=== PATIENT | female | born 1975 | race Caucasian/White ===

== ENCOUNTER → 2022-06-10 14:22 | Outpatient (CLI) | payer MEDICAID, SELFPAY ==
[2022-06-10 14:17] LABS: Alanine Aminotransferase 12 U/L (12-78); Albumin Level 3.7 g/dl (3.5-5.0); Albumin/Globulin Ratio 1.5 (1.1-1.8); Alkaline Phosphatase 43 U/L (38-126); Aspartate Amino Transferase 27 U/L (14-36); Basophils % 0.7 % (0.1-2.0); Blood Urea Nitrogen 10 mg/dl (7-17); Calcium 8.7 mg/dl (8.4-10.2); Carbon Dioxide 27 mmol/L (22.0-30.0); Chloride 104 mmol/L (98-107); Cholesterol 146 mg/dl (140-200); Eosinophils # 0.2 K/mm3 (0.0-0.4); Eosinophils % 3.9 % (0.1-12.0); Estimated Glomerular Filt Rate 108 ml/min (>60); GFR (African American) 131 ML/MIN (>60); Globulin 2.5 g/dL (1.3-3.2); Glucose 114 mg/dl (74-100); HDL Cholesterol 49 mg/dl (40-60); Hematocrit 31.4 % (37.0-47.0); Hemoglobin 10.1 g/dL (12.2-16.2); Lymphocytes # 2.1 K/mm3 (0.7-4.5); Lymphocytes % 41.8 % (10-50); Mean Corpuscular HGB Conc 32.3 g/dL (31.8-35.4); Mean Corpuscular Hemoglobin 28.3 pg (27.0-31.2); Mean Corpuscular Volume 87.6 fl (81-99); Mean Platelet Volume 9.6 fl (7.4-10.4); Monocytes # 0.3 K/mm3 (0.1-1.0); Monocytes % 6.5 % (1.7-9.3); Neutrophils # 2.4 K/mm3 (1.8-7.8); Neutrophils % 47.1 % (37.0-80.0); Platelet Count 296 K/mm3 (142-424); Red Blood Count 3.58 M/mm3 (4.20-5.40); Sodium 138 mmol/L (136-145); Total Protein,Serum 6.2 g/dl (6.3-8.2); Triglycerides 69 mg/dl (30-150); VLDL Cholesterol 14 mg/dL (0-40); White Blood Count 5.1 K/mm3 (4.8-10.8)
[2022-06-10 14:20] LABS: Bilirubin,Total < 0.1 mg/dl (0.2-1.3)
[2022-06-10 14:33] LABS: 25-OH Vitamin D, Total 53.8 ng/mL (30-100)
[2022-06-10 14:34] LABS: Free T4 (Free Thyroxine) 0.83 ng/dl (0.78-2.19)
[2022-06-10 14:48] LABS: Thyroid Stimulating Hormone 3.12 uIU/mL (0.465-4.68)
[2022-06-11 08:40] LABS: Prolactin 20.8 ng/mL (4.8-23.3)
== END ==
PROVIDERS: PCP Emergency Medicine; Visit Provider Emergency Medicine
DX: R53.83 Other fatigue (principal); E55.9 Vitamin D deficiency, unspecified; Z79.899 Other long term (current) drug therapy
CPT/HCPCS: 80053; 80061; 82306; 84146; 84439; 84443; 85025

== ENCOUNTER → 2022-06-23 08:35 | Outpatient (CLI) | payer MEDICAID, SELFPAY ==
--- NOTE | 2022-06-23 08:35 | MR_ITS ---
FINAL REPORT CLINICAL HISTORY: pituitary gland mass. LACTATING IN RIGHT BREAST. MIGRAINE HEADACHE. PAIN BEHIND RIGHT EYE WITH TWITCHING. SYMPTOMS X1YEAR. FINDINGS: Multiplanar MR imaging of the brain was performed without contrast. There is no evidence of intracranial hemorrhage or mass. The ventricular size is normal. There is no evidence of shift of the midline structures. No abnormal extra-axial fluid collection is identified. The posterior fossa and brainstem have an unremarkable appearance. The pituitary gland is somewhat enlarged measuring 9 mm in height. This has a convex superior border. There is no well-defined mass or nodule. No area of abnormal restricted diffusion is identified. Normal major vessel vascular flow voids are seen. IMPRESSION: Somewhat enlarged pituitary gland without focal mass or nodule. Recommend follow-up pituitary protocol a MRI without and with contrast. Reviewed, Interpreted and Dictated by Khurram Isaacs III, MD Transcribed by Waldemar Damico Authenticated and [facility]
== END ==
PROVIDERS: PCP Emergency Medicine; Visit Provider Emergency Medicine
DX: E23.7 Disorder of pituitary gland, unspecified (principal)
CPT/HCPCS: 70551

== ENCOUNTER → 2022-06-24 06:37 | Outpatient (CLI) | payer MEDICAID, SELFPAY ==
--- NOTE | 2022-06-24 | CA_ITS ---
APPROVED REPORT Exam: Exercise Treadmill Technologist: HARLAN FERNANDEZ, Ht: 5 ft 3 in Wt: 128 lbs BSA: 1.60 m2 HR: 87 bpm BP: 143/77 mmHg Indications: CP; MURMUR Medical History Medications: BuPRen-NALOXONE,,,,, NaloXone,,,,, Allergies: No known drug allergies Cardiac Risk Factors: FHX of CAD Stress Test Details Test: Trevor HR Resting HR: 86 bpm Max Heart Rate (APMHR): 175.042691 bpm Max HR Achieved: 150 bpm Target HR (85% APMHR): 148.514790 bpm % of APMHR: 85.71 Recovery HR: 95 bpm BP Resting BP: 141/82 mmHg Max BP: 164/93 mmHg Recovery BP: 145.0/84.0 mmHg ECG Clinical Exercise duration: 08:47 min Highest Stage Achieved: Exercise capacity: 10.1 METs Stress ECG Conclusion PT HAD SOA. NO CP. OCCASIONAL PAC/PVC <1.[address] CHANGES Test Summary RECOVERY 03:35 0.0 0.0 96 . 145/ 84 . . REST . . . . . . . Standing REST 15:46 0.0 0.0 86 . 141/ 82 . . Stage 1 01:00 10.0 1.7 105 . . . . Stage 1 02:00 10.0 1.7 112 . . . . Stage 1 03:00 10.0 1.7 108 . 124/ 78 . . Stage 2 01:00 12.0 2.5 117 . . . . Stage 2 02:00 12.0 2.5 123 . . . . Stage 2 03:00 12.0 2.5 128 . 132/ 72 . . Stage 3 01:00 14.0 3.4 139 . . . . Stage 3 02:00 14.0 3.4 144 . . . . Stage 3 02:47 14.0 3.4 149 . 140/ 80 . Stop exercise at 08:47 RECOVERY 01:00 0.0 0.0 115 . . . . RECOVERY 02:00 0.0 0.0 95 . . . . RECOVERY 03:00 0.0 0.0 90 . 164/ 93 . . RECOVERY 03:35 0.0 0.0 96 . 145/ 84 . . Electronically signed by : Tommy Alvarez MD 06/24/2022 13:08:33
--- NOTE | 2022-06-24 06:37 | NM_ITS ---
APPROVED REPORT Exam: Nuclear Stress Test Indication: FM HX., C.P., SOB, PALPITATIONS, FATIGUE, MURMUR Patient Location: Outpatient Stress Tech: Kasey Cole [place] Tech:Jacquie Abel, ARRNadine RT (R)(N)(M) Ht: 5 ft 3 in Wt: 130 lbs Bra Size: 34C HR: 87 bpm BP: 143/77 mmHg BSA: 1.61 m2 TID: 1.22 BMI: 23.0 History: FM HX., C.P., SOB, PALPITATIONS, FATIGUE, MURMUR Procedure: Patient exercised on Trevor protocol 7:46 minutes and sec, resting heart rate 87 bpm, resting blood pressure 143/77 mmHg, with exercise maximum heart rate achived was 146 bpm which is 86 % of the maximum predicted heart rate and blood pressure was 164/80 mmHg. Test was stopped due to SOA. Patient has Good exercise capacity, achieved 10.1 METs of workload on treadmill, the blood pressure response to exercise was Adequate. Electrocardiogram Resting electrocardiogram showed sinus rhythm, with exercise there is less than 1.[address] segment depression noted from the baseline EKG. The EKG portion of the exercise Myoview is negative for ischemia. Cardiac Stress and Resting SPECT Images: Cardiac Stress and Resting SPECT images were obtained using technetium 99m Myoview 30.9 mCi stress and 10.22 mCi at rest. Gated SPECT for analysis of segmental wall motion and calculation of the ejection fraction also done. Cardiac stress and rest SPECT images show uniform myocardial activity without segmental perfusion abnormality, computer derived ejection fraction is 52% with no regional wall motion abnormality, right ventricle is normal size and contractility. Conclusion: 1. The EKG portion of the exercise Myoview is negative for ischemia, patient has good exercise capacity achieved 10.1 METs of workload on treadmill, the blood pressure response to exercise was adequate, there was no exercise-induced chest discomfort. 2. No scintigraphic evidence of reversible ischemia seen, computer derived ejection fraction is 52% with no regional wall motion abnormality, right ventricle is normal size and contractility. 3. Normal exercise Myoview study. Electronically signed by : Tommy Alvarez MD 06/24/2022 13:24:59
== END ==
PROVIDERS: PCP Emergency Medicine; Visit Provider Emergency Medicine
DX: R07.9 Chest pain, unspecified (principal)
CPT/HCPCS: 78452; 93017; A9502

== ENCOUNTER → 2022-06-29 10:32 | Outpatient (CLI) | payer MEDICAID, SELFPAY ==
[2022-06-29 20:47] LABS: Erythrocyte Sedimentation Rate 113 mm/hr (0-20)
[2022-06-29 21:13] LABS: Uric Acid 3.2 mg/dl (2.5-6.2)
[2022-07-01 07:14] LABS: RA Latex Turbid. 15.4 IU/mL (<14.0)
[2022-07-05 08:53] LABS: Antinuclear Antibodies, IFA Negative (.)
== END ==
PROVIDERS: PCP Emergency Medicine; Visit Provider Emergency Medicine
DX: G25.81 Restless legs syndrome (principal)
CPT/HCPCS: 84550; 85651; 86038; 86431

== ENCOUNTER → 2022-07-11 10:42 | Outpatient (CLI) | payer MEDICAID, SELFPAY ==
--- NOTE | 2022-07-11 10:42 | MR_ITS ---
FINAL REPORT CLINICAL HISTORY: pitutary protocal. ABNORMAL MRI 06/23. HEADACHE. TWITCHING AND PAIN BEHIND RIGHT EYE. LACTATING IN RIGHT BREAST. 10ML PROHANCE GIVEN. COMPARISON: 06/23/2022 FINDINGS: Multiplanar MR imaging of the brain was performed without and with contrast with attention to the pituitary. There is no evidence of intracranial hemorrhage or mass. No abnormal extra-axial fluid collection is seen. The ventricular size is within normal limits. There is no evidence of shift of the midline structures. The posterior fossa and brainstem have an unremarkable appearance. No area of abnormal restricted diffusion is identified. No abnormal contrast enhancement is seen. Normal major vessel vascular flow voids are noted. The pituitary gland is mildly enlarged measuring 8 mm in height with a convex upper border. There is no pituitary mass or abnormal contrast enhancement. The pituitary stalk is midline. There is no suprasellar mass. The optic chiasm is normal. IMPRESSION: No acute intracranial abnormality identified. Mildly enlarged pituitary gland of uncertain significance. Reviewed, Interpreted and Dictated by Khurram Isaacs III, MD Transcribed by Xiao Dan Authenticated and [facility]
== END ==
PROVIDERS: PCP Emergency Medicine; Visit Provider Emergency Medicine
DX: E23.7 Disorder of pituitary gland, unspecified (principal)
CPT/HCPCS: 70553; A9576

== ENCOUNTER → 2022-10-25 23:00 | Outpatient (CLI) | payer MEDICAID, SELFPAY ==
[2022-10-26 17:06] LABS: Amphetamine/Metha Screen,Urine Negative ng/ml (<1000); Barbiturates Screen,Urine Negative ng/ml (<200); Benzodiazepines Screen,Urine Negative ng/ml (<200); Cannabinoid Screen,Urine Negative ng/ml (<50); Cocaine Screen,Urine Positive ng/ml (<300); Methadone Screen,Urine Negative ng/ml (<300); Opiate Screen,Urine Negative ng/ml (<300); Phencyclidine Screen,Urine Negative ng/ml (<25)
== END ==
PROVIDERS: PCP Emergency Medicine; Visit Provider Emergency Medicine
DX: Z79.899 Other long term (current) drug therapy (principal)
CPT/HCPCS: 80305

== ENCOUNTER → 2022-11-11 15:30 | Outpatient (CLI) | payer MEDICAID, SELFPAY ==
[2022-11-11 17:51] LABS: Amphetamine/Metha Screen,Urine Positive ng/ml (<1000)
[2022-11-11 17:52] LABS: Barbiturates Screen,Urine Negative ng/ml (<200); Benzodiazepines Screen,Urine Negative ng/ml (<200)
[2022-11-11 17:53] LABS: Cannabinoid Screen,Urine Negative ng/ml (<50)
[2022-11-11 17:54] LABS: Cocaine Screen,Urine Negative ng/ml (<300); Methadone Screen,Urine Negative ng/ml (<300)
[2022-11-11 17:55] LABS: Opiate Screen,Urine Negative ng/ml (<300)
[2022-11-11 17:56] LABS: Phencyclidine Screen,Urine Negative ng/ml (<25)
== END ==
PROVIDERS: PCP Emergency Medicine; Visit Provider Emergency Medicine
DX: Z79.899 Other long term (current) drug therapy (principal)
CPT/HCPCS: 80305

== ENCOUNTER → 2023-02-08 14:29 | Outpatient (CLI) | payer MEDICAID, SELFPAY ==
--- NOTE | 2023-02-08 14:32 | MM_ITS ---
PROCEDURE INFORMATION: Exam: US Right Breast, Complete US Left Breast, Complete MG Bilateral Diagnostic Breast Tomosynthesis Exam date and time: 02/08/2023 3:27 PM Age: 47 years old Clinical indication: Bilateral breast palpable lumps; Bilateral breast discharge; Breast pain and bloody nipple discharge TECHNIQUE: Imaging protocol: Complete ultrasound of all four quadrants of the right breast and the retroareolar regions, including ultrasound of the axilla when performed. Complete ultrasound of all four quadrants of the left breast and the retroareolar regions, including ultrasound of the axilla when performed. Bilateral Diagnostic tomosynthesis and 2D mammography including computer-aided detection (CAD) when performed. Unilateral or bilateral exam. COMPARISON: MG MM DIG MAMM BI DX W/CAD 02/08/2023 2:26 PM FINDINGS: MAMMOGRAPHY: The breast tissue is extremely dense, which lowers the sensitivity of mammography. There is no stellate mass, architectural distortion or suspicious microcalcifications in either breast to suggest malignancy. No skin thickening or axillary adenopathy. Skin markers were placed over bilateral upper outer quadrant as well as the anterior right upper inner quadrant for bilateral palpable abnormalities. Dense coarse nodular parenchyma is noted bilaterally. ULTRASOUND: Sonographic images of both breasts including the retroareolar regions, all 4 quadrants and the axilla do not demonstrate any solid masses. Predominantly subcentimeter cystic change is noted bilaterally. There is a dominant left 11 o'clock axis 2.7 cm cyst. Dominant right 1.4 cm 7 o'clock axis cyst. Subcentimeter cysts are scattered in both upper outer quadrants where the patient reports palpable abnormalities. The patient also reports a palpable abnormality in the right upper inner quadrant. There are no focal findings in the 1 o'clock axis 6 cm from the nipple where the patient reports the additional palpable abnormality. No architectural distortion or acoustical shadowing. No skin thickening or axillary adenopathy. IMPRESSION: Bilateral palpable abnormalities correspond to underlying benign cystic change is well as normal fibroglandular structures as described above.Further evaluation of a palpable abnormality should be based on clinical grounds regardless of radiographic findings or lack thereof. Nipple discharge if spontaneous and clear and/or hemorrhagic may be evaluated further with bilateral breast MRI if clinically warranted In the absence of suspicious clinical findings, annual bilateral mammographic screening is recommended ASSESSMENT: BI-RADS Category 2: Benign
--- NOTE | 2023-02-08 14:32 | US_ITS ---
FINAL REPORT CLINICAL HISTORY: abnormal uterine bleeding COMPARISON: None FINDINGS: Transvaginal sonographic images of the pelvis were obtained. The uterus measures 9.2 x 4.9 x 6.3 cm. The endometrium measures 1.0 cm, which is within normal limits. No uterine mass is identified. The right ovary measures 3.5 cm in length and left ovary measures 2.9 cm in length. There is a 2.3 cm probable cyst in left ovary. There is a 1.4 cm cyst in the right ovary. There is no evidence of free fluid. IMPRESSION: Bilateral ovarian cysts. Reviewed, Interpreted and Dictated by Khurram Isaacs III, MD Transcribed by Tonya Rodriguez Authenticated and [facility]
== END ==
PROVIDERS: PCP Emergency Medicine; Visit Provider Obstetrics & Gynecology
DX: N93.8 Other specified abnormal uterine and vaginal bleeding (principal); N64.52 Nipple discharge; N64.4 Mastodynia; Z80.3 Family history of malignant neoplasm of breast
CPT/HCPCS: 76641; 76830; 77062; 77066; G0279

== ENCOUNTER → 2023-04-04 18:59 | Outpatient (CLI) | payer MEDICAID, SELFPAY ==
[2023-04-04 13:32] LABS: Barbiturates Screen,Urine Negative ng/ml (<200); Benzodiazepines Screen,Urine Negative ng/ml (<200)
[2023-04-04 13:33] LABS: Amphetamine/Metha Screen,Urine Negative ng/ml (<1000)
[2023-04-04 13:34] LABS: Cannabinoid Screen,Urine Negative ng/ml (<50); Methadone Screen,Urine Negative ng/ml (<300)
[2023-04-04 13:35] LABS: Cocaine Screen,Urine Negative ng/ml (<300)
[2023-04-04 13:36] LABS: Opiate Screen,Urine Negative ng/ml (<300); Phencyclidine Screen,Urine Negative ng/ml (<25)
== END ==
PROVIDERS: PCP Emergency Medicine; Visit Provider Emergency Medicine
DX: Z79.899 Other long term (current) drug therapy (principal)
CPT/HCPCS: 80305

== ENCOUNTER → 2023-04-19 08:57 | Outpatient (CLI) | payer MEDICAID, SELFPAY ==
--- NOTE | 2023-04-19 08:57 | MR_ITS ---
FINAL REPORT CLINICAL HISTORY: back pain lower back pain x 1 month with bilateral leg pain, tingling, numbness, and burning pt also c/o of left hand tingling and numbness since having her picc line placed at the end of november 2022 11 ml prohance given FINDINGS: Multiplanar MR imaging of the lumbar spine was performed without and with contrast. Motion artifact is identified on many of the images. On the sagittal T2-weighted images, disc degeneration is seen at several levels. There is severe endplate edema at L5-S1. There is a hemangioma in the S2 vertebral body. The vertebral alignment is normal. There is no evidence of fracture. The conus is seen at approximately the L1 level and has an unremarkable appearance. T12-L1: There is no significant canal stenosis or neural foraminal narrowing. L1-2: There is no significant canal stenosis or neural foraminal narrowing. L2-3: An annular bulge is present. There is a small central disc protrusion. No significant canal stenosis or neuroforaminal narrowing is seen. L3-4: An annular bulge is present. No significant canal stenosis or neuroforaminal narrowing is seen. L4-5: An annular bulge is present. No significant canal stenosis or neuroforaminal narrowing is seen. L5-S1: An annular bulge and osteophytes are present. There is contrast enhancement of the endplates. There is mild enhancement of the L5-S1 disc. Differential considerations would include discitis or aggressive degenerative changes. IMPRESSION: Discitis versus aggressive degenerative change at L5-S1. Follow-up MRI may be helpful. Reviewed, Interpreted and Dictated by Khurram Isaacs III, MD Transcribed by Ivonne Stern Authenticated and [facility]
--- NOTE | 2023-04-22 19:40 | PC.NURSE ---
MRI RESULTS SENT TO [phone].
== END ==
PROVIDERS: PCP Emergency Medicine; Visit Provider Emergency Medicine
DX: G06.1 Intraspinal abscess and granuloma (principal); L03.90 Cellulitis, unspecified; M19.90 Unspecified osteoarthritis, unspecified site; M54.9 Dorsalgia, unspecified
CPT/HCPCS: 72158; 76376; A9576

== ENCOUNTER → 2023-06-28 14:15 | Outpatient (CLI) | payer MEDICAID, SELFPAY ==
[2023-06-28 18:01] LABS: Basophils % 0.5 % (0.1-2.0); Eosinophils # 0.2 K/mm3 (0.0-0.4); Eosinophils % 3.6 % (0.1-12.0); Hematocrit 37.5 % (37.0-47.0); Hemoglobin 12.1 g/dL (12.2-16.2); Lymphocytes # 1.3 K/mm3 (0.7-4.5); Lymphocytes % 24.3 % (10-50); Mean Corpuscular HGB Conc 32.4 g/dL (31.8-35.4); Mean Corpuscular Hemoglobin 28.2 pg (27.0-31.2); Mean Corpuscular Volume 87.1 fl (81-99); Mean Platelet Volume 9.1 fl (7.4-10.4); Monocytes # 0.4 K/mm3 (0.1-1.0); Monocytes % 7.2 % (1.7-9.3); Neutrophils # 3.4 K/mm3 (1.8-7.8); Neutrophils % 64.4 % (37.0-80.0); Platelet Count 243 K/mm3 (142-424); Red Cell Distribution Width 15.5 % (11.5-17.5); White Blood Count 5.3 K/mm3 (4.8-10.8)
[2023-06-28 18:05] LABS: Alanine Aminotransferase 15 U/L (12-78); Albumin Level 4.5 g/dl (3.5-5.0); Albumin/Globulin Ratio 1.4 (1.1-1.8); Alkaline Phosphatase 56 U/L (38-126); Anion Gap 10.1 mEq/L (5-15); Aspartate Amino Transferase 28 U/L (14-36); Bilirubin,Total 0.3 mg/dl (0.2-1.3); Blood Urea Nitrogen 10 mg/dl (7-17); Calcium 9.1 mg/dl (8.4-10.2); Carbon Dioxide 31 mmol/L (22.0-30.0); Chloride 99 mmol/L (98-107); Cholesterol 169 mg/dl (140-200); Estimated Glomerular Filt Rate 90 ml/min (>60); GFR (African American) 109 ML/MIN (>60); Globulin 3.3 g/dL (1.3-3.2); Glucose 105 mg/dl (74-100); HDL Cholesterol 57 mg/dl (40-60); Potassium 4.1 mmoL/L (3.5-5.1); Sodium 136 mmol/L (136-145); Total Protein,Serum 7.8 g/dl (6.3-8.2); Triglycerides 64 mg/dl (30-150); VLDL Cholesterol 13 mg/dL (0-40)
[2023-06-28 18:16] LABS: Direct LDL Cholesterol 82.25 mg/dL (100-129)
[2023-06-28 18:22] LABS: 25-OH Vitamin D, Total 40.1 ng/mL (30-100)
[2023-06-28 18:24] LABS: T4 (Thyroxine) 11.1 ug/dl (5.53-11.0)
[2023-06-28 18:37] LABS: Thyroid Stimulating Hormone 2.14 uIU/mL (0.465-4.68)
[2023-06-28 19:22] LABS: Erythrocyte Sedimentation Rate 59 mm/hr (0-20)
[2023-06-28 19:36] LABS: Barbiturates Screen,Urine Negative ng/ml (<200)
[2023-06-28 19:37] LABS: Benzodiazepines Screen,Urine Negative ng/ml (<200)
[2023-06-28 19:38] LABS: Cocaine Screen,Urine Positive ng/ml (<300)
[2023-06-28 19:39] LABS: Methadone Screen,Urine Negative ng/ml (<300)
[2023-06-28 19:40] LABS: Cannabinoid Screen,Urine Negative ng/ml (<50); Opiate Screen,Urine Positive ng/ml (<300)
[2023-06-28 19:41] LABS: Phencyclidine Screen,Urine Negative ng/ml (<25)
[2023-06-29 15:44] LABS: C-Reactive Protein 5.4 mg/L (0-4)
[2023-07-03 13:15] LABS: Amphetamine Positive (.); Amphetamine (GC/MS) >3000 ng/mL (Cutoff=500); Amphetamines Positive (.); Methamphetamine Negative (Cutoff=500)
== END ==
LOC: LAB.DROPOF 06-29 06:25
PROVIDERS: PCP Emergency Medicine; Visit Provider Emergency Medicine
DX: Z00.00 Encounter for general adult medical examination without abnormal findings (principal); M46.47 Discitis, unspecified, lumbosacral region; Z68.21 Body mass index [BMI] 21.0-21.9, adult
CPT/HCPCS: 80053; 80061; 80305; 80324; 82306; 84436; 84443; 85025; 85651; 86140

== ENCOUNTER → 2023-08-02 08:40 | Outpatient (CLI) | payer MEDICAID, SELFPAY ==
[2023-08-02 21:04] LABS: Amphetamine/Metha Screen,Urine Negative ng/ml (<1000); Barbiturates Screen,Urine Negative ng/ml (<200)
[2023-08-02 21:05] LABS: Benzodiazepines Screen,Urine Negative ng/ml (<200)
[2023-08-02 21:06] LABS: Cocaine Screen,Urine Negative ng/ml (<300)
[2023-08-02 21:07] LABS: Methadone Screen,Urine Negative ng/ml (<300)
[2023-08-02 21:08] LABS: Opiate Screen,Urine Negative ng/ml (<300)
[2023-08-02 21:16] LABS: Cannabinoid Screen,Urine Positive ng/ml (<50)
[2023-08-02 21:24] LABS: Phencyclidine Screen,Urine Negative ng/ml (<25)
== END ==
PROVIDERS: PCP Emergency Medicine; Visit Provider Emergency Medicine
DX: Z79.899 Other long term (current) drug therapy (principal)
CPT/HCPCS: 80305